=== PATIENT | female | born 1990 | race Caucasian/White ===

== ENCOUNTER 2016-12-06 16:26 | Emergency (ER) | payer MEDICAID ==
[~2016-12-06] VITALS: Ht 157.5 cm; Wt 45.0 kg
[~2016-12-06 16:26] MED LIST: NITR-58 PO; PRENATAL VIT
[2016-12-06 16:32] VITALS: Ht 157.5 cm; Wt 45.0 kg
[2016-12-06] MEDS ORDERED: ACETAMINOPHEN 500 MG TAB PO STA (18:46)
[2016-12-06 18:57] LABS: URINE BLOOD (Dip) POC Negative (NEGATIVE)
--- NOTE | 2016-12-06 19:42 | RADRPT ---
AMENDMENT: 12/06/2016 7:43:16 PM Reynaldo Fabian M.d Correction: The uterus size was not measured. PROCEDURE: Real Time Sonogram. 12/06/20167:00 PM CLINICAL INDICATION: Pain. TECHNIQUE: This procedure was performed on a high-resolution real time Unit using a endovaginal pr obe. COMPARISON: CT scan abdomen and pelvis 11/17/2015. FINDINGS: The uterus measures 10.6 cm sagittal by 6.2 cm AP by 9.6 cm transverse. Presentation: Mobile Cervical Length: 3 cmPlacental Location: Anterior. Grade 1.Placental Previa: No. Body limb and cardiac motion: Yes.Heart rate: 152 beats per minute. Amniotic fluid volume:Normal. Measured data: BPD:2.85 cm15 weeks 1 day. HC:10.5 cm15 weeks 0 days. AC:8.4 cm14 weeks 5 days. FC:1.6 cm14 weeks 5 days. AUA:14 weeks 6 daysplus or minus 1 week 0 days. JULIANNA (AUA):05/31/2017 Serial scan estimated menstrual age: Not calculated. weight: Not available. Endovaginal imaging utilized: Yes. Additional findings: The left ovary is normal measuring 2.8 by 1.8 by 2.7 cm. There is normal blood flow and Doppler imaging to the left ovary. The right ovary measures 2.75 x 1.8 by 2.7 cm and is no rmal blood flow. There is no free fluid in the pelvis and no abnormal adnexal mass is identified. IMPRESSION: See above RPTAT:AAJJ Physician Regine Date Time Electronically viewed and signed by Physician Regine on 12/06/2016 19:43 JM/
[2016-12-06] MEDS ORDERED: ACET500C5 PO (20:02)
--- NOTE | 2016-12-06 20:04 | ERD ---
ER Documentation Chief Complaint Date/Time DATE: 12/06/16 TIME: 20:03 Chief Complaint pelvic pain radaiting to back , 15 weeks preg , no vag bleed HPI This 26-year-old female complains of lower abdominal pain and low back pain. Been for the last day. She is approximately 15 weeks by dates. She denies vaginal bleeding, dysuria, fevers, vomiting, shortness breath or chest pain. ROS All systems reviewed and are negative except as per history of present illness. Medications Home Meds Active Scripts Acetaminophen* (Tylophen*) 500 Mg Capsule, 1 CAP PO Q6H Y for PAIN AND OR ELEVATED TEMP, #15 CAP Prov:ZAIRA MCNEILL MD 12/06/16 Nitrofurantoin Monohyd Macrocr* (Macrobid*) 100 Mg Capsr, 100 MG PO BID for 5 Days, CAP Prov:BHARATH MERLOS NP 11/17/15 Reported Medications Vit 02/02/10 Allergies Allergies: Uncoded Allergies: PENICILLIN (Allergy, Severe, RASH, 02/02/10) PMhx/Soc History of Surgery: Yes (2 ABORTIONS) Anesthesia Reaction: No Hx Neurological Disorder: No Hx Respiratory Disorders: No Hx Cardiac Disorders: No Hx Psychiatric Problems: No Hx Miscellaneous Medical Probl: No Hx Alcohol Use: No Hx Substance Use: No Hx Tobacco Use: No Smoking Status: Never smoker Physical Exam Vitals Vital Signs Date Time Temp Pulse Resp B/P Pulse Ox O2 Delivery O2 Flow Rate FiO2 12/06/16 16:32 98.1 70 18 98/53 99 Physical Exam Const: [] Alert, not ill-appearing. Head: Atraumatic Eyes: Normal Conjunctiva ENT: Normal External Ears, Nose and Mouth. Neck: Full range of motion..~ No meningismus. Resp: Clear to auscultation bilaterally Cardio: Regular rate and rhythm, no murmurs Abd: Soft, minimal lower abdominal tenderness without tenderness at McBurney' s point no Romero sign., non distended. Normal bowel sounds Skin: No petechiae or rashes Back: No midline or flank tenderness Ext: No cyanosis, or edema Neur: Awake and alert Psych: Normal Mood and Affect Results 24 hrs Laboratory Tests Test 12/06/16 18:57 Bedside Urine pH (LAB) 7.0 Bedside Urine Protein (LAB) Negative Bedside Urine Glucose (UA) Negative Bedside Urine Ketones (LAB) 3+ Bedside Urine Blood Negative Bedside Urine Nitrite (LAB) Negative Bedside Urine Leukocyte Esterase (L Negative Current Medications Medications (Trade) Dose Ordered Sig/Denilson Route PRN Reason Start Time Stop Time Status Last Admin Dose Admin Acetaminophen (Tylenol Tab) 500 mg ONCE STAT PO 12/06/16 18:46 12/06/16 18:48 DC 12/06/16 18:51 Procedures/MDM Pelvic ultrasound shows normal-appearing 14 week 6 day without acute abnormalities. Urine is negative for leukocytes, glucose, nitrites. Patient is no abdominal pain of uncertain etiology and early . She will treated with Tylenol and further observation at home. She should return for fevers, vomiting, vaginal bleeding, new worsening symptoms with OB provider this week. Signs or symptoms do not suggest appendicitis, obstruction, acute abdomen is a additional because of abdominal pain but should return for new or worsening symptoms. The patient was stable with no new complaints during the ER course. Clinically, there is no current evidence to suggest meningitis, sepsis, acute abdomen, pneumonia, acute coronary syndrome, pulmonary embolism, or any other emergent condition appearing to require further evaluation or hospitalization. The patient should certainly return for any new or worsening symptoms per the aftercare instructions. They should otherwise follow-up with her primary care doctor for reevaluation this week. Departure Diagnosis: Primary Impression: Pelvic pain complicating Condition: Stable Patient Instructions: Pelvic Pain In : Unclear (2-3 Trimester) Additional Instructions: Examines normal hoy. Cheque otro vez con minaya doctor primario en el proximo ch or regresa para mas o nueva simptomas. ZAIRA MCNEILL MD Dec 06, 2016 20:04
[2016-12-06 20:16] VITALS: BP 115/56; PULSE 75; RESP 16; TEMP 97.8
== END 2016-12-06 20:16 | disposition home or self-care (01) ==
LOC: FTE 16:26
DX: O26.892 Other specified pregnancy related conditions, second trimester (principal); R10.2 Pelvic and perineal pain; Z3A.14 14 weeks gestation of pregnancy
CPT/HCPCS: 76805; 81003; Z7502; Z7610